=== PATIENT | male | born 1960 | race Caucasian/White ===

== ENCOUNTER 2016-11-23 07:15 | Day surgery (SDC) | payer OTHER ==
--- NOTE | 2016-11-22 19:54 | HISTORY AND PHYSICAL ---
ADMITTED: 11/23/2016 HISTORY OF PRESENT ILLNESS: The patient is a 56-year-old male with a chief complaint of a painful left foot. States that the bump on the back of his left heel has progressed to the point where it is painful with shoe gear. I had successfully carried out a very similar procedure on his right back in 11/2014. Reports that the right side feels great, that he wanted to have his left corrected. MEDICAL/SURGICAL HISTORY: Past medical history: Includes a history essentially noncontributory. Surgical history: Tonsils, adenoids, and knee procedure, as well as a right foot surgery mentioned. PRIMARY CARE PROVIDER: KAVYA Romero. MEDICATIONS: 1. Ibuprofen 600 mg as needed. ALLERGIES: 1. NKDA SOCIAL HISTORY: He is employed at [employer]. Drinks socially, does not smoke. He is . FAMILY HISTORY: Noncontributory to the chief complaint. REVIEW OF SYSTEMS: Ten-point review of systems noncontributory to chief complaint. PHYSICAL EXAMINATION: GENERAL: The patient is alert, oriented x3. HEENT: PERRLA. Normocephalic. HEART: Regular rate and rhythm. Regular S1 and S2. No murmurs or gallops. LUNGS: Respiration clear to auscultation. No wheezing, rhonchi, or rales. ABDOMEN: Soft, tender, nondistended. Normal tones. NEUROLOGIC: Deep tendon reflexes, epicritic sensations are intact. Negative Babinski. EXTREMITIES: Lower extremity/Vascular: Dorsalis pedis, posterior tibial pulses are palpable at +2/4. Subpapillary venous plexus capillary refill within normal limits. Orthopedically, there is noted prominent exostosis at the insertion point of the tendo-Achilles on the left. He does get 10 degrees of dorsiflexion with the knee extended and flexed. When he gets back to an extended position, the Achilles at its insertion points becomes painful. LAB/IMAGING: Imaging: Reveals a very prominent exostosis, the posterior aspect of the left os calcis. IMPRESSION: 1. Retrocalcaneal exostosis and bursitis. 2. Insertional Achilles tendinitis. PLAN: The patient has consented for a surgical procedure consisting of an exostectomy of the hypertrophied bone, as well as Achilles tendon advancement and repair via an Achilles SpeedBridge procedure and technique. He is well aware of the convalescent period associated with the planned procedure. Surgery is scheduled on outpatient basis on 11/23/2016 at [facility].
[~2016-11-23] VITALS: Ht 182.9 cm; Wt 135.3 kg
[~2016-11-23 07:15] MED LIST: ADVIL200 M1 PO; FISH OIL1000 MG
[2016-11-23] MEDS ORDERED: PERCOCET1 TA4 PO (10:56)
[2016-11-23] MEDS ORDERED: ZOFRAN4 MG PO (10:56)
--- NOTE | 2016-11-23 10:58 | Provider's Discharge Care Plan ---
Problem, Goal, Plan Problem List 1. Other synovitis and tenosynovitis, left ankle and foot Goals: Improve function Instructions: Follow up as directed
--- NOTE | 2016-11-23 10:58 | Provider's Discharge Care Plan ---
Problem, Goal, Plan Problem List 1. Other synovitis and tenosynovitis, left ankle and foot Goals: Improve function Instructions: Follow up as directed
--- NOTE | 2016-11-23 12:40 | OPERATIVE REPORT ---
DATE OF SURGERY: 11/23/2016 SURGEON: Chucky Willoughby DPM PREOPERATIVE DIAGNOSIS: 1. Reyna deformity and retrocalcaneal exostosis, left foot POSTOPERATIVE DIAGNOSES: 1. Reyna deformity and retrocalcaneal exostosis, left foot PROCEDURE PERFORMED: 1. Resection of Reyna deformity and tendo-Achilles advancement. HEMOSTASIS: Achieved by mid calf tourniquet inflated to 250 mmHg pressure. TOURNIQUET TIME: Total tourniquet time 65 minutes. MATERIALS: Used 3-0 and 4-0 Polysorb and 4-0 Surgipro and an Arthrex internal SpeedBridge with 4 SwiveLocks and FiberTape, #2 FiberTape. INJECTABLES: Injected 20 mL of 0.5% bupivacaine plain. COMPLICATIONS: None. CONDITION: The patient tolerated anesthesia and procedure well. INDICATIONS: The patient is a 56-year-old male with a chief complaint of a painful left foot. Successfully carried out a similar procedure on his right 2 years ago. Since the left is now more painful, and he would like to have it corrected, he is well aware of the planned procedure. There are no contraindications to surgery at this time. SURGICAL TECHNIQUE: The patient was brought to the operating room on a gurney. General anesthetic was administered, as well as a placement of a pneumatic tourniquet above the left ankle. The patient was then placed on the operating table in a prone position. The lower extremity was then prepped and draped in the normal sterile fashion. An intraoperative pause was carried out for identification of proper limb, i.e., left lower extremity and verification of IV antibiotics and equipment issues were all dressed. There were no problems. Attention was then directed to procedure #1. Procedure #1: A Reyna resection: Utilizing an Esmarch bandage to exsanguinate the foot, the tourniquet was then inflated. A curvilinear incision was made extending from the medial aspect of the tendo-Achilles, just approximately 6 cm proximal to its insertion and curving down centrally to its insertion point. It was deepened by sharp and blunt dissection with superficial vessels ligated. Paratenon was incised and reflected sharply. The tendo-Achilles was then transected centrally approximately 4 cm proximal to its insertion point and reflected. The hypertrophied bone at its insertion point was resected with an osteotome and mallet. The prominent Reyna deformity and superior posterior aspect of the os calcis was excised via sagittal saw. It was contoured with the power rasp. The area was copiously lavaged and flushed. The Achilles tendon was then advanced and reattached with the Arthrex SpeedBridge technique, secured proximally with 2 SwiveLocks and a FiberTape. FiberTape was advanced up through the tendo-Achilles and then 2 additional drill holes were then placed just inferior and distal to its terminal end. Then the FiberTape was then inserted into an additional SwiveLock with the foot under a load. The SpeedBridge was carried out. The remaining tendon was reapproximated with 3-0 Polysorb. Subcutaneous, paratenon was reapproximated with 4-0 Polysorb, subcutaneous with 4-0 and skin edges were then reapproximated in a running fashion with 4-0 Surgipro. Then 20 mL of 0.5% bupivacaine were then infiltrated into the area. The patient tolerated anesthesia and procedure well and left the room with vital signs stable. While in recovery, written instructions for absolutely nonweightbearing to the left foot. Prognosis is guarded. He will be discharged home in stable condition.
[2016-11-23 14:07] VITALS: BP 158/98
== END 2016-11-23 13:47 | disposition home or self-care (01) ==
LOC: OR SRH 07:15 → SCU SRH 07:16 → OR SRH 08:30
PROVIDERS: Podiatrist
PROC: 0QBM0ZZ Excision of Left Tarsal, Open Approach (ICD-10-PCS; principal; 2016-11-23 08:30)
PROC: 0LSW0ZZ Reposition Left Foot Tendon, Open Approach (ICD-10-PCS; principal; 2016-11-23 08:30)
DX: M92.62 Juvenile osteochondrosis of tarsus, left ankle (principal); M89.9 Disorder of bone, unspecified
CPT/HCPCS: 29229; 29240; 50002; 60001; 70002; 80102; 80212; 80852; 83224; 83414; 84522; 90047; 90074; 94060; 95059